=== PATIENT | male | born 1940 | race Caucasian/White ===

== ENCOUNTER → 2017-04-09 | Day surgery (SDC) | payer MEDICARE, MEDICAID ==
[~2017-04-09] VITALS: Ht 180.3 cm; Wt 59.3 kg
[~2017-04-09] MED LIST: AZULFIDINE500 MG PO; NITROSTAT 0.40.4 MG SL; OXYGEN M-15 INH; PROVENTIL OR V6.7 GM INH; SYMBICORT 16010.2 GM INH
--- NOTE | ~2017-04-09 | OR ---
PATIENT'S NAME: [facility] AGE: 76 Y [address] ROOM: [place] [id number] LOCATION: GEND ADMIT DATE: 04/09/2017 OR/Procedure Report DISCHARGE DATE: FAMILY PHYSICIAN: Olaf Riojas MD ATTENDING PHYSICIAN: NITHYA PEDROZA SURGEON: Nithya Pedroza MD DATE OF PROCEDURE: 04/09/2017 PROCEDURE EMBRYOLOGY TEACHER: Kylie Tamayo, auto repair technician. PROCEDURES PERFORMED: 1. Bronchoscopy with bronchial wash of the right lower lobe. 2. Bronchoscopy with bronchoalveolar lavage of the right lower lobe. 3. Bronchoscopy with therapeutic aspiration of secretions. INDICATIONS AND PREPROCEDURE DIAGNOSES: 1. Recurrent bronchitis episodes. 2. Abnormal chest CT. 3. History of Mycobacterium avium-intracellulare infection. 4. 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 POSTPROCEDURE DIAGNOSES: 1. Recurrent bronchitis episodes. 2. Abnormal chest CT. 3. History of Mycobacterium avium-intracellulare infection. 4. 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 CONSENT: Consent was obtained from the patient after all the indications, risks, benefits, and alternatives were explained at length. The patient verbalized understanding and signed an informed consent. DESCRIPTION OF PROCEDURE: The patient was taken to the endoscopy suite where a laryngeal mask was placed by the anesthesia team uneventfully. General anesthesia was started. The bronchoscope was advanced through the LMA into the airways, and the airways were examined. Local anesthesia was obtained with lidocaine solution instillations. FINDINGS: The vocal cords had normal appearance. There was a small amount of thick yellow secretions in the distal trachea with a large amount of yellow and very thick secretions in both lower lobes of the bronchial trees. There was moderate amount of secretions in the right middle lobe bronchus and small amount of secretions in the left upper lobe. All the secretions were suctioned aggressively using saline aliquots at times. A bronchial wash was performed initially in the right lower lobe. 20 mL of sterile saline were PATIENT'S NAME: [facility] AGE: 76 Y [address] ROOM: [place] [address] LOCATION: GEND ADMIT DATE: 04/09/2017 OR/Procedure Report DISCHARGE DATE: FAMILY PHYSICIAN: Olaf Riojas MD ATTENDING PHYSICIAN: NITHYA PEDROZA instilled with return of 20 mL of purulent secretions. A careful examination down to the subsegmental levels did not reveal any endobronchial lesions, old or new blood clots, or any active bleeding. A bronchoalveolar lavage was performed in the right lower lobe. 60 mL of sterile saline was instilled with return of 25 mL of slightly purulent bronchoalveolar lavage fluid. At the end of the procedure, the bronchoscope was withdrawn, and the patient was returned to the anesthesia team for further management. COMPLICATIONS: None. ESTIMATED BLOOD LOSS: None. SPECIMENS: The bronchoalveolar lavage and bronchial wash will be sent for microbiology studies, and the bronchoalveolar lavage will be sent for cytology studies as well. MD CAROLINE JOHNSON/modl /[id number] d: 04/09/17 1846 t: 04/11/17 1022, OPERATIVE SUMMARY
== END | disposition disaster alternative care site (69) ==
LOC: GPOC 04-06 15:00 → GEND 10:25 → GPOC 11:00
PROC: 0BC58ZZ Extirpation of Matter from Right Middle Lobe Bronchus, Via Natural or Artificial Opening Endoscopic (ICD-10-PCS; principal; 2017-04-09)
DX: J40 Bronchitis, not specified as acute or chronic (principal); J44.9 Chronic obstructive pulmonary disease, unspecified; I25.10 Atherosclerotic heart disease of native coronary artery without angina pectoris; Z98.890 Other specified postprocedural states; Z79.899 Other long term (current) drug therapy
CPT/HCPCS: J1100; J2001; J2405; J3010; J7030